=== PATIENT | male | born 1955 | race Caucasian/White ===

== ENCOUNTER 2025-01-08 17:25 | Emergency (ER) | payer OTHER, MEDICARE ==
[2025-01-08] MEDS ORDERED: predniSONE 20 MG TAB ONE (17:52)
[2025-01-08] MEDS ORDERED: Ibuprofen 800 MG TAB ONE (17:52)
== END 2025-01-08 18:47 | disposition home or self-care (01) ==
LOC: BURERS 17:25
DX: S39.012A Strain of muscle, fascia and tendon of lower back, initial encounter (principal); J44.9 Chronic obstructive pulmonary disease, unspecified; F17.210 Nicotine dependence, cigarettes, uncomplicated; W01.0XXA Fall on same level from slipping, tripping and stumbling without subsequent striking against object, initial encounter; Z79.899 Other long term (current) drug therapy
CPT/HCPCS: 72131; J7512

== ENCOUNTER 2025-03-08 12:53 | Emergency (ER) | payer OTHER, MEDICARE ==
[2025-03-08 16:20] LABS: Glucose, Urine (Dipstick) Negative (Negative); Leukocyte Negative (Negative); Protein, Urine (Dipstick) Negative (Neg-Trace); Specific Gravity, Urine 1.020 (1.005-1.030)
[2025-03-08 16:28] LABS: CAUTI Indications for Culture Pelvic or flank pain; RBC/HPF 0-3 HPF (0-3); WBC/HPF 0-3 HPF (0-3)
[2025-03-08 16:29] LABS: Bacteria/HPF Rare-Few HPF (None Seen); Mucous/LPF Rare LPF (<2+); Urine Culture Reflex No No
== END 2025-03-08 16:27 | disposition home or self-care (01) ==
LOC: BURERS 12:53
DX: K56.41 Fecal impaction (principal); R33.9 Retention of urine, unspecified; J44.9 Chronic obstructive pulmonary disease, unspecified; F17.210 Nicotine dependence, cigarettes, uncomplicated
CPT/HCPCS: 74176; 81001